=== PATIENT | female | born 1935 | race Caucasian/White ===

== ENCOUNTER 2018-09-06 19:39 | Emergency (ER) | payer OTHER ==
--- OUTSIDE RECORDS SUMMARY | 2018-09-06 19:42 | XMS REPORT | Clinical Summary ---
:[address] [facility] Address [address] [place] [address] Care Team Providers Name Role Phone Charlene Colon MD Primary Care Provider Allergies No Known Allergies Medications Medication Sig Dispensed Refills Start Date End Date Status rivaroxaban Take 20 mg by 0 Active (XARELTO) 20 mg mouth daily. tablet irbesartan-hydroch Take 1 tablet 0 Active lorothiazide by mouth (AVALIDE) 300-12.5 daily. mg per tablet amLODIPine Take 5 mg by 0 Active (NORVASC) 5 mg mouth daily. tablet omega Take 1 tablet 0 Active 2-fik-air-fish oil by mouth (FISH OIL) 1,000 daily. mg (120 mg-180 mg) capsule multivitamin Take 1 tablet 0 Active (THERAGRAN) tablet by mouth daily. pravastatin Take 80 mg by 0 Active (PRAVACHOL) 80 MG mouth nightly. tablet sotalol (BETAPACE) Take 120 mg by 0 11/04/2017 Discontinued 120 MG tablet mouth 2 (two) times a day. pravastatin Take 80 mg by 0 11/01/2017 Discontinued (PRAVACHOL) 40 MG mouth daily. tablet traMADol (ULTRAM) Take 0.5 25 tablet 0 11/04/2017 11/09/2017 50 mg tablet tablets (25 mg total) by mouth every 6 (six) hours as needed for moderate pain for up to 5 days. sotalol (BETAPACE) Take 1 tablet 60 tablet 1 11/04/2017 01/22/2018 Discontinued 160 MG tablet (160 mg total) by mouth 2 (two) times a day. minocycline Take 1 capsule 6 capsule 0 11/04/2017 11/07/2017 (MINOCIN) 100 MG (100 mg total) capsule by mouth 2 (two) times a day for 3 days. sucralfate Take 1 tablet 120 tablet 0 01/22/2018 02/21/2018 (CARAFATE) 1 gram (1 g total) by tablet mouth 4 (four) times a day before meals and nightly for 30 days. sotalol (BETAPACE) Take 1 tablet 60 tablet 0 01/22/2018 02/21/2018 80 MG tablet (80 mg total) by mouth 2 (two) times a day for 30 days. colchicine 0.6 mg Take 0.5 30 tablet 0 01/22/2018 02/21/2018 tablet tablets (0.3 mg total) by mouth 2 (two) times a day for 30 days. pantoprazole Take 1 tablet 60 tablet 0 01/22/2018 02/21/2018 (PROTONIX) 40 MG (40 mg total) EC tablet by mouth 2 (two) times a day for 30 days. Active Problems Problem Noted Date Persistent atrial fibrillation 01/21/2018 SSS (sick sinus syndrome) 11/03/2017 Encounters Date Type Specialty Care Team Description 01/21/2018 Anesthesia Event Procedural Goins, Cardiology Deisi Garcia MD 01/21/2018 Surgery Procedural Alfred Posey MD Ep complete ep study Cardiology w ablation pulmonary vein [88777 (CPT)] 01/21/2018 - Hospital Encounter Cardiology Alfred Posey MD Persistent atrial 01/22/2018 fibrillation 11/03/2017 Surgery Procedural Charlene Colon Ep ppi generator Gonzalo Monte MD insertion dual [58055 (CPT)] 11/03/2017 - Hospital Encounter Cardiology Charlene Colon SSS (sick sinus 11/04/2017 MD Mell syndrome) 09/08/2017 Surgery Procedural Charlene Colon Ep loop recorder Gonzalo Monte MD insertion [41708 (CPT)] 09/08/2017 Hospital Encounter Procedural Charlene Colon Atrial fibrillation, Gonzalo Monte MD unspecified type after 09/05/2017 Immunizations Name Dates Previously Given Next Due FLUCELVAX QUAD PF (0.5mL syringe) 01/22/2018 Family History Medical History Relation Name Comments Cancer Father No Known Problems Mother Relation Name Status Comments Father Mother Social History Tobacco Use Types Packs/Day Years Used Date Never Smoker Smokeless Tobacco: Never Used Alcohol Use Drinks/Week oz/Week Comments No Sex Assigned at Date Recorded Not on file Job Start Date Occupation Industry Not on file Not on file Not on file Travel History Travel Start Travel End No recent travel history available. Last Filed Vital Signs Vital Sign Reading Time Taken Blood Pressure 105/51 01/22/2018 11:27 AM CDT Pulse 63 01/22/2018 11:27 AM CDT Temperature 36.6 C (97.8 F) 01/22/2018 11:27 AM CDT Respiratory Rate 16 01/22/2018 11:27 AM CDT Oxygen Saturation 95% 01/22/2018 11:27 AM CDT Inhaled Oxygen Concentration - - Weight 68.7 kg (151 lb 6.4 oz) 01/21/2018 10:12 AM CDT Height 158.8 cm (5' 2.5") 01/21/2018 10:12 AM CDT Body Mass Index 27.25 01/21/2018 10:12 AM CDT Plan of Treatment Health Maintenance Due Date Last Done Comments SHINGLES VACCINES (#1) 08/04/1985 65+ PNEUMOCOCCAL VACCINE (1 of 2 - PCV13) 08/04/2000 PNEUMOCOCCAL POLYSACCHARIDE VACCINE AGE 65 AND OVER 08/04/2000 INFLUENZA VACCINE 12/08/2018 01/22/2018 Implants Implanted Type Area Health Occupations Instructor Device Shelf Model / Identifier Expiration Serial / Date Lot [place] Xt Dr Mri - [id number] Cardiac N/A: [employer] CRM [id number] / Implanted: 11/03/2017 (Quantity not on file) Pacemaker N/A [employer] / Generators System Reveal Linq W/Monitors - [id number] Cardiac N/A: [employer] 2018 [id number] / Implanted: 09/08/2017 (Quantity not on file) Pacemakers and N/A CARDIAC RHYTHM / Related DISEASE MGMT [id number] Products Lead, Pacemaker Bipolar Fix Forming Atrial And Ventricular Steroid Eluting 52 Centimeter Capsure Fix Novus - [id number] Cardiac Pacing N/A: [employer] CRM 08/20/2019 [id number] / Implanted: 11/03/2017 (Quantity not on file) Leads or N/A [employer]. [id number] / Electrodes or [id number] Accessories Lead, Bipolar Active Fixation Atrial Steroid Eluting 45 Cm Capsure Fix Novus System - [id number] Cardiac Pacing N/A: [employer] CRM 09/08/2019 [id number] / Implanted: 11/03/2017 (Quantity not on file) Leads or N/A [employer], [employer]. [id number] / Electrodes or [id number] Accessories Procedures Procedure Name Priority Date/Time Associated Diagnosis Comments XR CHEST 1 VW Routine 01/22/2018 6:52 Results for this PORTABLE AM CDT procedure are in the results section. HC COMPLETE BLD COUNT Routine 01/22/2018 6:00 Results for this W/AUTO DIFF AM CDT procedure are in the results section. ESTIMATED GFR Routine 01/22/2018 4:00 Results for this AM CDT procedure are in the results section. BASIC METABOLIC PANEL Routine 01/22/2018 4:00 Results for this AM CDT procedure are in the results section. EP COMPLETE EP STUDY Routine 01/21/2018 4:30 Persistent atrial Results for this W ABLATION PULMONARY PM CDT fibrillation procedure are in VEIN the results section. ACTIVATED CLOTTING Routine 01/21/2018 4:14 Results for this TIME PM CDT procedure are in the results section. ACTIVATED CLOTTING Routine 01/21/2018 3:01 Results for this TIME PM CDT procedure are in the results section. ACTIVATED CLOTTING Routine 01/21/2018 2:21 Results for this TIME PM CDT procedure are in the results section. NM AN ELECTIVE Routine 01/21/2018 1:26 ENDOTRACHEAL AIRWAY PM CDT Procedure Note - Deisi Goins MD - 01/21/2018 1:26 PM CDT Airway Performed by: HOLGER TRIVEDI Authorized by: DEISI GOINS Location: OR Urgency: Elective Difficult Airway: No Anesthesiologist: DEISI GOINS Resident/WASH OIL COOLER OPERATOR/AA: HOLGER TRIVEDI Performed by: resident/WASH OIL COOLER OPERATOR Preoxygenated with 100% O2: Yes C-spine Precautions Maintained Throughout: Yes Mask Ventilation: Easy mask Final Airway Type: Endotracheal airway Final Endotracheal Airway: ETT Cuffed: Yes Technique Used: Direct laryngoscopy Insertion Site: Oral Blade Type: Coker Laryngoscope Blade/Videolaryngoscope Blade Size: 2 ETT Size (mm): 7.0 Cuff at minimum occlusion pressure: Yes Measured from: Lips ETT to Lips (cm): 21 Placement Verified by: CO2 detection, direct visualization and equal breath sounds Laryngoscopic view: Grade I - full view of glottis Rapid Sequence Induction (RSI): No Modified RSI: No Number of Attempts at Approach: 1 Atraumatic; no injury to lips, teeth, or oropharynx. TYPE AND SCREEN STAT 01/21/2018 10:45 AM Results for this CDT procedure are in the results section. ECG PRE/POST OP Routine 01/21/2018 10:23 AM Results for this CDT procedure are in the results section. ZZESTIMATED GFR Routine 11/04/2017 5:45 AM Results for this CDT procedure are in the results section. MAGNESIUM LEVEL Routine 11/04/2017 5:45 AM Results for this CDT procedure are in the results section. BASIC METABOLIC PANEL Routine 11/04/2017 5:45 AM Results for this CDT procedure are in the results section. ECG 12-LEAD Routine 11/04/2017 3:17 AM Results for this CDT procedure are in the results section. ZZESTIMATED GFR Routine 11/03/2017 10:10 PM Results for this CDT procedure are in the results section. MAGNESIUM LEVEL Routine 11/03/2017 10:10 PM Results for this CDT procedure are in the results section. BASIC METABOLIC PANEL Routine 11/03/2017 10:10 PM Results for this CDT procedure are in the results section. XR CHEST 1 VW Routine 11/03/2017 9:56 PM Results for this PORTABLE CDT procedure are in the results section. ECG PRE/POST OP STAT 11/03/2017 6:45 PM Results for this CDT procedure are in the results section. EP SUBCUTANEOUS Routine 11/03/2017 5:46 PM SSS (sick sinus Results for this CARDIAC RHYTHM CDT syndrome) procedure are in MONITOR REMOVAL the results section. EP INSERTION Routine 11/03/2017 5:46 PM SSS (sick sinus Results for this PACEMAKER PULSE CDT syndrome) procedure are in GENERATOR the results section. ECG 12-LEAD STAT 11/03/2017 1:34 PM Results for this CDT procedure are in the results section. ECG 12-LEAD Routine 09/08/2017 9:06 AM Results for this CDT procedure are in the results section. EP SUBCUTANEOUS Routine 09/08/2017 7:54 AM Atrial fibrillation, Results for this CARDAIC RHYTHM CDT unspecified type procedure are in MONITOR INSERT W PROG the results section. after 09/05/2017 Results XR Chest 1 Vw Portable (01/22/2018 6:52 AM CDT)Only the most recent of2 resultswithin the time period is included. Narrative Performed At EXAMINATION:XR CHEST 1 VW PORTABLE [facility] CLINICAL HISTORY: Post A. fib ablation COMPARISON:11/03/2017 IMPRESSION: Left subclavian pacer device remains in place. There is mild cardiomegaly. Pulmonary vasculature is normal. Lungs are clear. No effusion or pneumothorax noted. Visualized osseous structures are intact. [facility]-[id number] Procedure Note Hm Interface, Radiology Results Incoming - 01/22/2018 8:55 AM CDT EXAMINATION: XR CHEST 1 VW PORTABLE CLINICAL HISTORY: Post A. fib ablation COMPARISON: 11/03/2017 IMPRESSION: Left subclavian pacer device remains in place. There is mild cardiomegaly. Pulmonary vasculature is normal. Lungs are clear. No effusion or pneumothorax noted. Visualized osseous structures are intact. [facility]-[id number] Performing Organization Address City/State/Zipcode Phone Number [facility] [address] [place] [address] CBC with platelet and differential (01/22/2018 6:00 AM CDT) WBC 8.41 4.50 - 11.00 k/uL [facility] DEPARTMENT OF PATHOLOGY AND GENOMIC MEDICINE RBC 3.71 (L) 4.20 - 5.50 m/uL [facility] DEPARTMENT OF PATHOLOGY AND GENOMIC MEDICINE HGB 12.1 12.0 - 16.0 g/dL [facility] DEPARTMENT OF PATHOLOGY AND GENOMIC MEDICINE HCT 36.1 (L) 37.0 - 47.0 % [facility] DEPARTMENT OF PATHOLOGY AND GENOMIC MEDICINE MCV 97.3 82.0 - 100.0 fL [facility] DEPARTMENT OF PATHOLOGY AND GENOMIC MEDICINE MCH 32.6 27.0 - 34.0 pg [facility] DEPARTMENT OF PATHOLOGY AND GENOMIC MEDICINE MCHC 33.5 31.0 - 37.0 g/dL [facility] DEPARTMENT OF PATHOLOGY AND GENOMIC MEDICINE RDW - SD 44.3 37.0 - 55.0 fL [facility] DEPARTMENT OF PATHOLOGY AND GENOMIC MEDICINE MPV 10.6 8.8 - 13.2 fL [facility] DEPARTMENT OF PATHOLOGY AND GENOMIC MEDICINE Platelet count 219 150 - 400 k/uL [facility] DEPARTMENT OF PATHOLOGY AND GENOMIC MEDICINE Nucleated RBC 0.00 /100 WBC [facility] DEPARTMENT OF PATHOLOGY AND GENOMIC MEDICINE Neutrophils 65.0 39.0 - 69.0 % [facility] DEPARTMENT OF PATHOLOGY AND GENOMIC MEDICINE Lymphocytes 21.8 (L) 25.0 - 45.0 % [facility] DEPARTMENT OF PATHOLOGY AND GENOMIC MEDICINE Monocytes 11.2 (H) 0.0 - 10.0 % [facility] DEPARTMENT OF PATHOLOGY AND GENOMIC MEDICINE Eosinophils 1.0 0.0 - 5.0 % [facility] DEPARTMENT OF PATHOLOGY AND GENOMIC MEDICINE Basophils 0.6 0.0 - 1.0 % [facility] DEPARTMENT OF PATHOLOGY AND GENOMIC MEDICINE Immature granulocytes 0.4Comment: 0.0 - 1.0 % [facility] DEPARTMENT OF "Immature PATHOLOGY AND GENOMIC granulocytes" MEDICINE (promyelocytes, myelocytes, metamyelocytes) Specimen Blood Performing Organization Address City/[facility] Phone Number [facility] DEPARTMENT OF PATHOLOGY AND [address] [place], [place] [id number] [employer] [facility] Estimated GFR (01/22/2018 4:00 AM CDT) Estimated GFR 74 mL/min/1.73 m2 [facility] DEPARTMENT OF Comment: PATHOLOGY AND GENOMIC CatergoryUnitsInterpretation MEDICINE G1 >=90 Normal or high G2 60-89Mildly decreased [id number] to moderately decreased Z5p33-89Iusfulgtex to severely decreased G4 15-29Severely decreased G5 <15Kidney failure The eGFR was calculated using the Chronic Kidney Disease Epidemiology Collaboration (CKD-EPI) equation. Interpretation is based on recommendations of the National Kidney Foundation-Kidney Disease Outcomes Quality Initiative (NKF-KDOQI) published in 2014. Specimen Plasma specimen Performing Organization Address City/[facility] Phone Number [facility] DEPARTMENT OF PATHOLOGY AND [address] [place] [phone] [employer] Basic metabolic panel (01/22/2018 4:00 AM CDT)Only the most recent of3 resultswithin the time period is included. Sodium 140 135 - 148 mEq/L [facility] DEPARTMENT OF PATHOLOGY AND GENOMIC MEDICINE Potassium 4.0 3.5 - 5.0 mEq/L [facility] DEPARTMENT OF PATHOLOGY AND GENOMIC MEDICINE Chloride 103 98 - 112 mEq/L [facility] DEPARTMENT OF PATHOLOGY AND GENOMIC MEDICINE CO2 27 24 - 31 mEq/L [facility] DEPARTMENT OF PATHOLOGY AND GENOMIC MEDICINE Anion gap 10@ANIO 7 - 15 mEq/L [facility] DEPARTMENT OF PATHOLOGY AND GENOMIC MEDICINE BUN 14 8 - 23 mg/dL [facility] DEPARTMENT OF PATHOLOGY AND GENOMIC MEDICINE Creatinine 0.75 0.50 - 0.90 mg/dL [facility] DEPARTMENT OF PATHOLOGY AND GENOMIC MEDICINE Glucose 96 65 - 99 mg/dL [facility] DEPARTMENT OF PATHOLOGY AND GENOMIC MEDICINE Calcium 8.8 8.8 - 10.2 mg/dL [facility] DEPARTMENT OF PATHOLOGY AND GENOMIC MEDICINE Specimen Plasma specimen Performing Organization Address City/State/Zipcode Phone Number [facility] DEPARTMENT OF PATHOLOGY AND [address] [place] [address] [employer] [facility]ICINE Cv electrophysiology procedure (01/21/2018 4:30 PM CDT) Impressions Performed At -Successful pulmonary veins isolation x4 CUPID -No clear afib trigger identified. RECOMMENDATIONS: 1- Monitor on telemetry overnight 2- Bedrest for 4 hours after sheaths removal 3- Restart Xarelto tonight 4- Decrease sotalol to 80mg BID 5- Lasix 20 mg IV when patient in recovery Narrative Performed At DATE OF OPERATION: 01/21/2018 [facility] CALENDER ROLL OPERATOR: Alfred Posey MD PREOPERATIVE DIAGNOSES: -Persistent atrial fibrillation -Sick sinus syndrome s/p pacemaker -Resistant hypertension POSTOPERATIVE DIAGNOSES: -Persistent atrial fibrillation -Sick sinus syndrome s/p pacemaker -Resistant hypertension PROCEDURES PERFORMED: -Ultrasound guided vascular access -Arterial line placement -Afib ablation with PVI -3D mapping -Stimulation after drug infusion -Intra cardiac echocardiography (ICE) -Device programming at the beginning and the end of the procedure COMPLICATIONS: None ESTIMATED BLOOD LOSS: <30cc HISTORY OF PRESENT ILLNESS: In brief, this is an 82 years old female with past medical history as above, with symptomatic atrial fibrillation refractory to high dose anti-arrhythmics (currently on high dose sotalol 160mg BID) who presents today for atrial fibrillation ablation. PROCEDURE IN DETAIL: Consent was obtained from the patient after a full explanation of the risks and benefits of the procedure. The patient was brought to the electrophysiology lab in the fasting state. The patient was prepared and draped in a sterile fashion. General anesthesia with intratracheal ventilation administered by the anesthesia service was used for the procedure. Esophageal temperature monitoring was performed throughout the case using CIRCA catheter. Patient presented to the EP lab in normal sinus rhythm. Sheaths were placed using modified Seldinger technique. Three venous sheaths (8Fr, long 7Fr and long 9Fr sheath) were placed in the right femoral vein using ultrasound guidance without complication. One 4Fr arterial sheath was placed in the right femoral artery using ultrasound guidance without complication. Heparin bolus and gtt were given after obtaining vascular access. A intracardiac echocardiography catheter (ICE) was inserted via the 9Fr sheath and advanced into the right atrium and the right ventricle.At baseline, there was no pericardial effusion and normal EF. Using SOUND, the CTI, CS os, fossa,common os LPV, RPVs were marked. The left atrium was noted to be mildly enlarged and measured at 4.6cm. The ICE catheter was later used to guide transseptal puncture and monitor for procedure complications. Next, the RFV 8Fr sheath was upgraded to a medium curl Agilis sheath, through which a Fiix SF catheter, DF curve was advanced to the RA, and a Fast Anatomic Map (FAM) was done for the IVC, RA septum, fossa and SVC. A decapolar diagnostic catheter was then advanced into the coronary sinus.After titrating heparin drip to achieve an ACT > 350 sec, transseptal puncture was performed with [place] long needle (not requiring RF) using ICE guidance. Left (18 mmHg) atrial pressure was measured to assess intracardiac filling pressures.There were no complications. Following transseptal puncture, Agilis sheath was advanced into the LA, and the ablator was then exchanged to a DF Pentarray catheter. A detailed 3D electroanatomical and voltage map was created while in sinus rhythm in the left atrium using CARTO mapping system. Mostly normal voltage was seen throughout. After exchanging the Pentarray to the ablation catheter, we proceeded to pulmonary veins isolation. The left pulmonary vein (common os) was circumferentially isolated as a common os using RF ablation.Left veins were isolated from the first pass. Ablation line was extended posterior enough to isolate areas of low voltage on the posterior roof. The right pulmonary veins were circumferentially isolated as a common os using RF ablation. Additional lesions were needed on the posterior inferior wall to achieve isolation. Prior to ablation of right sided veins, pacing was performed and right phrenic nerve course was avoided (PN captured from RPVs and course was avoided during lesions;'capture was confirmed again at the end after ablation was complete).30-40 W for 30 sec and impedance drop of 10-15 ohms was targeted in the anterior sites. Posterior sites used 20 W for 8-15 sec. Occasionally, high power short duration lesions (40-50W for 4-5 seconds) were used, with no significant change in esophageal temperature. Following this, the LPV was found to be reconnected and ablation at the posterior monica reisolated the veins. Isuprel infusion up to 20mcg/min did demonstrate reconnection of the RPVs. Additional lesions were needed along the posterior monica and carinal line transecting the upper and lower vein was eventually needed to isolate successfully the RPVs. The LPV was confirmed to be isolated with high output pacing exit.CS burst pacing from 250ms to 180msec during isuprel washout, no afib or organized AT/flutter was induced. Only non sustained flutter and afib was seen. Heparin was stopped and catheters were withdrawn into the RA. At this time case was ended. HV interval was measured at 118msec and AH=47ms. Post-procedure ICE showed no pericardial effusion.At this time, GA was stopped and patient was extubated; No immediate complications. Protamine was given at the end of the procedure.Sheaths were pulled in the lab and patient was transferred to the PACU in a stable condition. Of note, patient was noted to have significant hypertension during the procedure and significant LVH on ICE. Performing Organization Address [facility] Phone Number [facility] [address] [place] [address] Activated clotting time (01/21/2018 4:14 PM CDT)Only the most recent of3 resultswithin the time period is included. Activated clotting time 111 96 - 152 sec [facility] DEPARTMENT OF Comment: PATHOLOGY AND GENOMIC Meter ID: [id number] MEDICINE Casting Machine Service Operator: Jean Paul Abebe Performing Organization Address [facility] Phone Number [facility] DEPARTMENT OF PATHOLOGY AND [address] [place] [id number] GENOMIC MEDICINE Type and screen (01/21/2018 10:45 AM CDT) ABO grouping A [facility] DEPARTMENT OF PATHOLOGY AND GENOMIC MEDICINE Rh type POS [facility] DEPARTMENT OF PATHOLOGY AND GENOMIC MEDICINE Antibody screen (gel) NEG [facility] DEPARTMENT OF PATHOLOGY AND GENOMIC MEDICINE Specimen Blood Performing Organization Address [facility] Phone Number [facility] DEPARTMENT OF PATHOLOGY AND [address] [place] [phone] GENOMIC MEDICINE ECG Pre/Post Op (01/21/2018 10:23 AM CDT)Only the most recent of2 resultswithin the time period is included. Ventricular rate 61 [facility]USE Atrial rate 61 [facility] NM interval 182 [facility] QRSD interval 82 [facility] QT interval 406 [facility] QTC interval 408 H MUSE P axis 1 31 [facility] MUSE QRS axis 1 -22 [facility] MUSE T wave axis 45 [facility] MUSE EKG impression Normal sinus rhythm-Low voltage QRS-RSR' or QR pattern in V1 suggests right ventricular conduction delay-Cannot rule out Inferior infarct , age undetermined-Abnormal ECG-In automated comparison with ECG [facility] MUSE of 04-NOV-2017 03:17,-Sinus rhythm has replaced Atrial fibrillation-RSR' pattern in V1 is now present- Performing Organization Address City/[facility] Phone Number [facility] [place] [place] [address] [place] [address] Estimated GFR (11/04/2017 5:45 AM CDT)Only the most recent of2 resultswithin the time period is included. GFR Non Af Amer 80 mL/min/1.73 m2 [facility] DEPARTMENT OF PATHOLOGY AND GENOMIC MEDICINE GFR Af Amer >90 mL/min/1.73 m2 [facility] DEPARTMENT OF Comment: PATHOLOGY AND GENOMIC Chronic kidney disease: <60 mL/min/1.73m2 MEDICINE Kidney failure: <15 mL/min/1.73m2 The estimated GFR is calculated from the IDMS-traceable Modification of Diet in Renal Disease Equation. The accuracy of the calculation is poor when the creatinine is normal. Calculated values >90 mL/min/1.73m2 are not reported. This equation has not been validated in children (<18 years), women, the elderly (>70 years), or ethnic groups other than Caucasians and Americans. Specimen Plasma specimen Performing Organization Address City/[facility]/Zipcode Phone Number [facility] DEPARTMENT OF PATHOLOGY AND [address] [place] [address] [facility] Magnesium level (11/04/2017 5:45 AM CDT)Only the most recent of2 resultswithin the time period is included. Magnesium 2.0 1.6 - 2.4 mg/dL [facility] DEPARTMENT OF PATHOLOGY AND GENOMIC MEDICINE Specimen Plasma specimen Performing Organization Address City/[facility] Phone Number [facility] DEPARTMENT OF PATHOLOGY AND [address] [place] [phone] GENOMIC MEDICINE ECG 12 lead (11/04/2017 3:17 AM CDT)Only the most recent of3 resultswithin the time period is included. Ventricular rate 66 [facility] MUSE Atrial rate 312 [facility] MUSE QRSD interval 74 [facility] MUSE QT interval 412 [facility] MUSE QTC interval 431 [facility] MUSE QRS axis 1 86 [facility] MUSE T wave axis 80 [facility] MUSE EKG impression Demand pacemaker, interpretation is based on intrinsic rhythm- Atrial fibrillation with premature ventricular or aberrantly conducted complexes -Low voltage QRS-Abnormal ECG-In automated comparison with E [facility] MUSE CG of 03-NOV-2017 18:45,-Electronic demand pacing is now present-Electronically Signed By Darci Shabazz ([id number]) on 2017 11:36:08 AM Performing Organization Address [facility] Phone Number [facility] [place] [place] [address] [place] [address] Cv electrophysiology procedure (11/03/2017 5:46 PM CDT) Narrative Performed At TITLE OF THE PROCEDURE: [facility] CUP[facility] Dual-chamber pacemaker insertion and implantable loop recorder explant. PREOPERATIVE DIAGNOSES: 1.Sick sinus syndrome. 2.Tachycardia-bradycardia syndrome. 3.Conversion pauses and sinus node arrest with dizziness. POSTOPERATIVE DIAGNOSES: 1.Sick sinus syndrome. 2.Tachycardia-bradycardia syndrome. 3.Conversion pauses and sinus node arrest with dizziness. PROCEDURES PERFORMED: 1.Cardiac fluoroscopy. 2.IV conscious sedation. 3.Insertion of dual-chamber pacemaker. 4.Removal of implantable loop recorder. BRIEF HISTORY OF PRESENT ILLNESS AND CLINICAL BACKGROUND: This is an 82-year-old woman with paroxysmal atrial fibrillation.She has LINQ monitor, which has documented pauses in excess of 3-4 seconds at the terminus of atrial fibrillation as well as during sinus rhythm.She is on sotalol 120 mg b.i.d., but continues to have intermittent atrial fibrillation. Consequently, because she has post-conversion pauses as well as sinus node dysfunction and requires uptitration of her medications or in the future additional medications or consideration of an ablation.She remains at risk for important sinus node dysfunction with potentially grossly symptomatic pauses and she comes for pacemaker insertion and subsequent ILR explant. PROCEDURE: Informed consent was obtained.Intravenous antibiotics were infused appropriately.The chest was prepped and draped in the usual sterile fashion and local anesthesia was achieved with 1% lidocaine.An upper extremity venogram was performed to identify the location of the axillary and subclavian vein and access was achieved.Guide wires were introduced under fluoroscopic guidance and advanced into the inferior vena cava. Using a sharp knife, cautery, and blunt dissection, a pocket was formed below the plane of the pectoralis fascia.The RV and atrial leads were placed into the venous system using standard technique.The RV pace/sense lead was placed into the RV apex and tested.After the thresholds were deemed adequate the lead was anchored in place.Maximum output pacing was performed to ensure that there was no diaphragmatic stimulation, and none was seen.The lead was anchored in place using 0-Ethibond sutures around the lead collar. A bipolar screw-in lead was affixed into the right atrium.Sensing and pacing thresholds were then performed.After they were found to be adequate, maximum output pacing was performed to ensure that there was no diaphragmatic stimulation, and none was seen.The lead was anchored in place using 0-Ethibond sutures around the lead collar. Fluoroscopy was repeated to ensure proper lead placement.The pacemaker pocket was visually, manually, and radiographically inspected to ensure there were no gauze or sponges in the pocket.It was then washed using antibiotic solution. Gloves and drapes were changed as needed.The pacemaker generator packet was then opened and was attached to the leads and the set screws were tightened. Each lead was gently tugged upon to ensure it was affixed within the header. After proper pacemaker function was confirmed, the lead slack and pacemaker were placed in the pocket.The pacemaker was anchored to the pectoralis muscle using 0-Ethibond suture.The skin incision was then closed in layers using 0-Vicryl sutures.Final skin closure was achieved with stainless steel oren and skin adhesive. COMPLICATIONS: None. FINDINGS: 1.The right ventricular apical pacing lead is Medtronic 5076, serial #[id number], pacing and sensing thresholds were nominal. 2.The atrial lead is a Medtronic 5076, serial #[id number], pacing and sensing thresholds were nominal. 3.The pacemaker is a Medtronic [place]-XT, serial number not available. 4.Utilizing a stab incision, the ILR was explanted. CONCLUSIONS: Successful dual-chamber pacemaker and ILR explant RECOMMENDATIONS: IV antibiotics and home in the morning. Performing Organization Address [facility] Phone Number [facility] [address] [place] [address] Cv electrophysiology procedure (09/08/2017 7:54 AM CDT) Narrative Performed At Charlene Colon Jr., MD Physician Signed CardiologyBrief Op Note Date of CUPID Service: 09/08/2017 7:15 AM Case Time: 09/08/2017 7:15 AM Surgeon: Charlene Colon Jr., MD Procedure: Ep loop recorder insertion Location: [facility] Personal Property Appraiser Invasive Location []Hide copied text []Hover for attribution information ILR implant Operative Note Marcy Callahan,[id number] 82 y.o. female 09/08/2017; [facility] CARD JONATHON 8 PROCEDURE ROOM 14 Procedure(s): Ep loop recorder insertion Tolerated procedure well Condition: stable Complications:None; patient tolerated the procedure well. Findings: The Implantable loop recorder was inserted under the skin in the 4th intercostal space just to the left of the sternum.Local anesthesia was used. Blood loss was zero. Procedure Details Pre-op Diagnosis: Atrial fibrillation, unspecified type [I48.91] Post-Op Diagnosis Codes: * Atrial fibrillation, unspecified type [I48.91] Surgeon(s) and Role: * Charlene Colon Jr., MD - Primary Anesthesia: Anesthesia type not filed in the log. Blood Products Administered:none Estimated Blood Loss: * No values recorded between 09/08/20177:15 AM and 09/08/20177:54 AM * Sheath/IV: Specimens: * No specimens in log * Grafts/Implants: Implant Name Type Inv. Item Serial No. Health Occupations Instructor Lot No. LRB No. Used Action SYSTEM REVEAL LINQ W/MONITORS - [id number] Cardiac Pacemakers and Related Products SYSTEM REVEAL LINQ W/MONITORS MEDTRONIC CARDIAC RHYTHM DISEASE MGMT [id number] N/A 1 Implanted Charlene Colon Jr., MD Date: 09/08/2017Time: 8:20 AM Performing Organization Address City/[facility] Phone Number [facility] [address] [place] [address] after 09/05/2017 Insurance Payer Benefit Plan / Group Subscriber ID Type Phone Address AETNA MEDICARE AETNA MEDICARE HMO/PPO [facility] xxxxxxxx HMO ([place]) [place] [address] Advance Directives Patient has advance care planning documents on file. For more information, please contact:Aravind Cuellar[address] [place] [address]
[2018-09-06 21:05] LABS: Absolute Lymphocytes (CBC) 1.3 K/uL (0.7-4.9); Absolute Monocytes 0.6 K/uL (0.1-1.3); Absolute Neutrophil 7.4 K/uL (1.8-8.0); Basophils % 0.7 % (0-1.3); Eosinophils % 0.8 % (0-4.4); Hematocrit 39.3 % (36.0-45.0); Lymphocytes % 13.9 % (15.3-44.8); MPV 9.5 fL (7.6-11.3); Monocytes % 6.3 % (3.3-12.3); RBC Red Blood Cell Count 4.15 M/uL (3.86-4.86)
[2018-09-06 21:16] LABS: Protime INR 1.27
[2018-09-06 21:19] LABS: ALT/SGPT 22 U/L (12-78); AST/SGOT 16 U/L (15-37); Albumin 3.6 g/dL (3.4-5.0); Alkaline Phosphatase 69 U/L (45-117); BUN Blood Urea Nitrogen 25 mg/dL (7-18); Bicarbonate 28 mmol/L (21-32); Bilirubin Direct 0.1 mg/dL (0-0.2); Bilirubin Total 0.5 mg/dL (0.2-1.0); Glucose Level 139 mg/dL (74-106); Magnesium 2.2 mg/dL (1.8-2.4); NT PRO-BNP 190 pg/mL (<450); Potassium 3.8 mmol/L (3.5-5.1); Protein, Total 6.9 g/dL (6.4-8.2); Sodium Level 140 mmol/L (136-145); Troponin (Emerg Dept Use Only) < 0.02 ng/mL (0.0-0.045)
--- NOTE | 2018-09-06 21:54 | ER ---
Nurse's Notes [facility] Name: Marcy Callahan Age: 83 yrs Sex: Female : 1935 Arrival Date: 09/06/2018 Time: 19:49 Bed 2 Private MD: Diagnosis: Paroxysmal atrial fibrillation Presentation: 09/06 19:49 Presenting complaint: Patient states: she was running errands this morning and became aa1 very tired so she laid down for a nap and when she woke up she was very sweaty and felt like her pulse was very rapid. She went to see Dr. Chand and he told her that she was back in AF and started her on Sotalol which she took as soon as she got home but reports she still does not feel right and feels as if her heart is racing. Denies CP, N/V or SOB. Transition of care: patient was not received from another setting of care. Onset of symptoms was September 06, 2018. Risk Assessment: Do you want to hurt yourself or someone else? Patient reports no desire to harm self or others. Initial Sepsis Screen: Does the patient meet any 2 criteria? No. Patient's initial sepsis screen is negative. Does the patient have a suspected source of infection? No. Patient's initial sepsis screen is negative. Care prior to arrival: IV initiated. 20 GA, in the right antecubital area. 19:49 Method Of Arrival: EMS: [facility] aa1 19:49 Acuity: DORI 2 aa1 Historical: - Allergies: 20:00 No Known Allergies; aa1 - Home Meds: 20:00 sotalol 80 mg oral tab .5 tab 2 times per day [Active]; Xarelto 20 mg oral tab 1 tab aa1 once daily [Active]; irbesartan-hydrochlorothiazide 300-12.5 mg oral tab 1 tab once daily [Active]; amlodipine 5 mg tab 1 tab once daily [Active]; Pravachol 80 mg Oral tab 1 tab once daily [Active]; Fish Oil oral oral daily [Active]; multivitamin oral tab daily [Active]; - PMHx: 20:00 Hyperlipidemia; Hypertension; Atrial Fib; aa1 - PSHx: 20:00 cardiac ablation; pacemaker; aa1 - Immunization history:: Pneumococcal vaccine is up to date, Flu vaccine is up to date. - Social history:: Smoking status: Patient/guardian denies using tobacco. - Ebola Screening: : No symptoms or risks identified at this time. Screenin:01 Abuse screen: Denies threats or abuse. Denies injuries from another. Nutritional aa1 screening: No deficits noted. Tuberculosis screening: No symptoms or risk factors identified. Fall Risk IV access (20 points). Assessment: 20:01 General: Appears in no apparent distress. comfortable, Behavior is calm, cooperative, aa1 appropriate for age. Pain: Denies pain. Neuro: Level of Consciousness is awake, alert, obeys commands, Oriented to person, place, time, situation, Moves all extremities. Full function Speech is normal. Cardiovascular: Denies chest pain, nausea, shortness of breath, Heart tones S1 S2 present Capillary refill < 3 seconds Clubbing of nail beds is absent JVD is absent Patient's skin is warm and dry. Rhythm is atrial fibrillation. Respiratory: Airway is patent Respiratory effort is even, unlabored, Respiratory pattern is regular, symmetrical. GI: No signs and/or symptoms were reported involving the gastrointestinal system. : No signs and/or symptoms were reported regarding the genitourinary system. EENT: No signs and/or symptoms were reported regarding the EENT system. Derm: Skin is intact, is healthy with good turgor, Skin is pink, warm \T\ dry. Musculoskeletal: Circulation, motion, and sensation intact. Capillary refill < 3 seconds. 20:41 Reassessment: BP 102/71; per MD ok to hold lopressor IVP at this time. aa1 21:30 Reassessment: Patient appears in no apparent distress at this time. Patient and/or aa1 family updated on plan of care and expected duration. Pain level reassessed. Patient is alert, oriented x 3, equal unlabored respirations, skin warm/dry/pink. Awaiting provider reassessment. 22:11 Reassessment: Patient appears in no apparent distress at this time. Patient is alert, aa1 oriented x 3, equal unlabored respirations, skin warm/dry/pink. Discussed d/c \T\ f/u instructions with pt \T\ family; denies questions or concerns at this time. Ambulates to lobby with steady gait. Patient denies pain at this time. Patient states feeling better. Vital Signs: 20:00 BP 105 / 54; Pulse 107; Resp 20; Temp 98.2(O); Pulse Ox 97% on R/A; Weight 68.04 kg; aa1 Height 5 ft. 4 in. (162.56 cm); Pain 0/10; 20:36 BP 102 / 71; Pulse 99; Resp 16; Pulse Ox 98% on R/A; Pain 0/10; aa1 21:30 BP 107 / 70; Pulse 99; Resp 20; Temp 97.7; Pulse Ox 97% on R/A; Pain 0/10; aa1 22:11 BP 100 / 69; Pulse 91; Resp 16; Temp 97.5; Pulse Ox 97% on R/A; Pain 0/10; aa1 20:00 Body Mass Index 25.75 (68.04 kg, 162.56 cm) aa1 ED Course: 19:49 Patient arrived in ED. aa1 19:50 Bucky Dejesus MD is Attending Physician. tw4 19:53 Triage completed. aa1 20:00 Arm band placed on left wrist. aa1 20:01 Patient has correct armband on for positive identification. Placed in gown. Bed in low aa1 position. Call light in reach. Side rails up X2. copying machine repairer on. Pulse ox on. NIBP on. 20:01 EKG done, by ED staff, reviewed by Bucky Dejesus MD. Maintain EMS IV. Dressing aa1 intact. Good blood return noted. Site clean \T\ dry. Gauge \T\ site: 20g RAC. Patient maintains SpO2 saturation greater than 95% on room air. 20:36 Bridget Patel RN is Primary Nurse. aa1 20:51 Initial lab(s) drawn, by ED staff, sent to lab. bb 20:59 XRAY Chest (1 view) In Process Unspecified. EDMS 22:11 No provider procedures requiring assistance completed. IV discontinued, intact, aa1 bleeding controlled, No redness/swelling at site. Pressure dressing applied. Administered Medications: 21:36 Not Given (Physician Discretion): Lopressor 5 mg IVP once; Hold for SBP <100 or HR <60. aa1 Outcome: 21:54 Discharge ordered by . tw4 22:11 Discharged to home ambulatory, with family. aa1 22:11 Condition: good 22:11 Discharge instructions given to patient, Instructed on discharge instructions, follow up and referral plans. medication usage, Demonstrated understanding of instructions, follow-up care, medications. 22:13 Patient left the ED. aa1 Signatures: Dispatcher [employer] EDBridget Barraza RN RN aa1 Melanie Denise RN RN Bucky Canales MD MD tw4
--- NOTE | 2018-09-06 21:54 | EDPHYS ---
Physician Documentation [facility] Name: Marcy Callahan Age: 83 yrs Sex: Female : 1935 Arrival Date: 09/06/2018 Time: 19:49 Bed 2 Private MD: ED Physician Bucky Dejesus HPI: 09/07 04:28 This 83 yrs old Female presents to ER via EMS with complaints of Irregular tw4 Pulse. 04:28 The patient presents with a history of heart racing. Context: The symptoms occur at tw4 rest. Onset: The symptoms/episode began/occurred today. Duration: The patient or guardian reports a single episode, that is now resolved. Modifying factors: The symptoms are aggravated by nothing. The symptoms are alleviated by nothing. Severity of symptoms: At their worst the symptoms were mild in the emergency department the symptoms are unchanged. The patient has not experienced similar symptoms in the past. Historical: - Allergies: 09/06 20:00 No Known Allergies; aa1 - Home Meds: 20:00 sotalol 80 mg oral tab .5 tab 2 times per day [Active]; Xarelto 20 mg oral tab 1 tab aa1 once daily [Active]; irbesartan-hydrochlorothiazide 300-12.5 mg oral tab 1 tab once daily [Active]; amlodipine 5 mg tab 1 tab once daily [Active]; Pravachol 80 mg Oral tab 1 tab once daily [Active]; Fish Oil oral oral daily [Active]; multivitamin oral tab daily [Active]; - PMHx: 20:00 Hyperlipidemia; Hypertension; Atrial Fib; aa1 - PSHx: 20:00 cardiac ablation; pacemaker; aa1 - Immunization history:: Pneumococcal vaccine is up to date, Flu vaccine is up to date. - Social history:: Smoking status: Patient/guardian denies using tobacco. - Ebola Screening: : No symptoms or risks identified at this time. ROS: 09/07 04:28 Constitutional: Negative for fever, chills, and weight loss, Eyes: Negative for injury, tw4 pain, redness, and discharge, Respiratory: Negative for shortness of breath, cough, wheezing, and pleuritic chest pain. Abdomen/GI: Negative for abdominal pain, nausea, vomiting, diarrhea, and constipation, Back: Negative for injury and pain, MS/Extremity: Negative for injury and deformity, Skin: Negative for injury, rash, and discoloration, Neuro: Negative for headache, weakness, numbness, tingling, and seizure. Cardiovascular: Positive for palpitations. Exam: 04:28 Constitutional: This is a well developed, well nourished patient who is awake, alert, tw4 and in no acute distress. Head/Face: Normocephalic, atraumatic. Chest/axilla: Normal chest wall appearance and motion. Nontender with no deformity. No lesions are appreciated. Respiratory: Lungs have equal breath sounds bilaterally, clear to auscultation and percussion. No rales, rhonchi or wheezes noted. No increased work of breathing, no retractions or nasal flaring. Abdomen/GI: Soft, non-tender, with normal bowel sounds. No distension or tympany. No guarding or rebound. No evidence of tenderness throughout. Back: No spinal tenderness. No costovertebral tenderness. Full range of motion. MS/ Extremity: Pulses equal, no cyanosis. Neurovascular intact. Full, normal range of motion. Neuro: Awake and alert, GCS 15, oriented to person, place, time, and situation. Cranial nerves II-XII grossly intact. Motor strength 5/5 in all extremities. Sensory grossly intact. Cerebellar exam normal. Normal gait. 04:28 Cardiovascular: Rate: tachycardic, actual rate is 105 bpm, Rhythm: irregular, Pulses: Vital Signs: 09/06 20:00 BP 105 / 54; Pulse 107; Resp 20; Temp 98.2(O); Pulse Ox 97% on R/A; Weight 68.04 kg; aa1 Height 5 ft. 4 in. (162.56 cm); Pain 0/10; 20:36 BP 102 / 71; Pulse 99; Resp 16; Pulse Ox 98% on R/A; Pain 0/10; aa1 21:30 BP 107 / 70; Pulse 99; Resp 20; Temp 97.7; Pulse Ox 97% on R/A; Pain 0/10; aa1 22:11 BP 100 / 69; Pulse 91; Resp 16; Temp 97.5; Pulse Ox 97% on R/A; Pain 0/10; aa1 20:00 Body Mass Index 25.75 (68.04 kg, 162.56 cm) aa1 MDM: 19:50 Patient medically screened. tw09/07 04:32 Differential diagnosis: arrythmia, dehydration, stress disorder. Data reviewed: vital tw4 signs, nurses notes. Data interpreted: Pulse oximetry: Interpretation: normal. Test interpretation: by ED physician or midlevel provider: ECG. Counseling: I had a detailed discussion with the patient and/or guardian regarding: the historical points, exam findings, and any diagnostic results supporting the discharge/admit diagnosis, lab results, radiology results. Special discussion: I discussed with the patient/guardian in detail that at this point there is no indication for admission to the hospital. It is understood, however, that if the symptoms persist or worsen the patient needs to return immediately for re-evaluation. ED course: Pt rested comfortably in the ED. Pt had no additional complaints. Pt HR remained less than 100. Pt started Sotalol and will see Dr Chand Cardiology tomorrow. 09/06 20:41 Order name: Basic Metabolic Panel tw4 09/06 20:41 Order name: CBC with Diff 09/06 20:41 Order name: LFT's tw09/06 20:41 Order name: Magnesium tw4 09/06 20:41 Order name: NT PRO-BNP tw09/06 20:41 Order name: PT-INR 09/06 20:41 Order name: Troponin (emerg Dept Use Only) tw09/06 20:41 Order name: XRAY Chest (1 view) 09/06 20:41 Order name: EKG; Complete Time: 20:42 09/06 20:41 Order name: Cardiac monitoring; Complete Time: 20:41 09/06 20:41 Order name: EKG - Nurse/Tech; Complete Time: 20:41 09/06 20:41 Order name: IV Saline Lock; Complete Time: 20:41 tw09/06 20:41 Order name: Labs collected and sent; Complete Time: 20:41 09/06 20:41 Order name: O2 Per Protocol; Complete Time: 20:41 09/06 20:41 Order name: O2 Sat Monitoring; Complete Time: 20:42 tw4 EC:35 Rate is 109 beats/min. Rhythm is irregularly irregular. QRS [place] is Normal. QRS tw4 interval is normal. QT interval is normal. No Q waves. T waves are Normal. No ST changes noted. Clinical impression: Atrial Fibrillation. Interpreted by me. Reviewed by me. Administered Medications: 09/06 21:36 Not Given (Physician Discretion): Lopressor 5 mg IVP once; Hold for SBP <100 or HR <60. aa1 Disposition: 09/07 04:36 Chart complete. tw4 Disposition: 09/06/18 21:54 Discharged to Home. Impression: Paroxysmal atrial fibrillation. - Condition is Stable. - Discharge Instructions: Atrial Fibrillation. - Medication Reconciliation Form, Thank You Letter, Antibiotic Education, Prescription Opioid Use form. - Follow up: Private Physician; When: Upon discharge from the Emergency Department; Reason: If symptoms return, Recheck today's complaints, Continuance of care. - Problem is new. - Symptoms have improved. Signatures: Dispatcher [employer] Bridget Wang RN RN aa1 Bucky Dejesus MD MD tw4 Corrections: (The following items were deleted from the chart) 09/06 22:13 21:54 09/06/2018 21:54 Discharged to Home. Impression: Paroxysmal atrial fibrillation. aa1 Condition is Stable. Forms are Medication Reconciliation Form, Thank You Letter, Antibiotic Education, Prescription Opioid Use. Follow up: Private Physician; When: Upon discharge from the Emergency Department; Reason: If symptoms return, Recheck today's complaints, Continuance of care. Problem is new. Symptoms have improved. tw4
--- NOTE | 2018-09-07 07:31 | RAD REPORT ---
EXAM DESCRIPTION: RAD - Chest Single View - 09/06/2018 9:06 pm CLINICAL HISTORY: Chest pain, shortness of breath COMPARISON: None. TECHNIQUE: AP portable chest image was obtained 6 hours . FINDINGS: Lungs are clear. Heart size is upper normal. Vasculature within normal limits. Left subcla vian pacemaker in place. No measurable pleural effusion and no pneumothorax. No acute bony abnormalit y seen. No acute aortic findings suspected. IMPRESSION: No acute cardiopulmonary process.
--- NOTE | 2018-09-07 16:51 | EKG ---
Test Date: 2018-09-06 Test Time: 20:01:16 Vp Clinical: SANDRA MEASUREMENT RESULTS: Intervals: Rate: 109 [place]: QRSD: 76 QT: 332 QTc: 447 [place]: P: [place]: QRS: 4 T: 45 INTERPRETIVE STATEMENTS: Atrial fibrillation with rapid ventricular response Low voltage QRS RSR' or QR pattern in V1 suggests right ventricular conduction delay Abnormal ECG Compared to ECG 07/23/2017 06:51:28 Low QRS voltage now present Sinus bradycardia no longer present Myocardial infarct finding no longer present Electronically Signed On 09-07-18 16:50:11 CDT by Terry Chand
== END 2018-09-06 22:13 | disposition home or self-care (01) ==
LOC: ER 19:39
DX: I48.0 Paroxysmal atrial fibrillation (principal); I10 Essential (primary) hypertension; E78.5 Hyperlipidemia, unspecified; Z79.01 Long term (current) use of anticoagulants; Z95.0 Presence of cardiac pacemaker
CPT/HCPCS: 36415; 71045; 80048; 80076; 83735; 83880; 84484; 85025; 85610; 93005; 99285

== ENCOUNTER 2018-12-30 15:26 | Emergency (ER) | payer OTHER ==
[2018-12-30] MEDS ORDERED: NA CHLORIDE 0.9% 500 ML ONE (17:30)
[2018-12-30 18:06] LABS: Absolute Lymphocytes (CBC) 1.5 K/uL (0.7-4.9); Basophils % 0.3 % (0-1.3); Hematocrit 38.4 % (36.0-45.0); Lymphocytes % 14.3 % (15.3-44.8); MPV 8.8 fL (7.6-11.3); RBC Red Blood Cell Count 4.05 M/uL (3.86-4.86)
[2018-12-30 18:07] LABS: Albumin 3.7 g/dL (3.4-5.0); Bilirubin Total 0.8 mg/dL (0.2-1.0); Potassium 3.5 mmol/L (3.5-5.1); Protein, Total 7.3 g/dL (6.4-8.2)
--- NOTE | 2018-12-30 18:10 | RAD REPORT ---
EXAM DESCRIPTION: CT - [id number] - 12/30/2018 6:00 pm CLINICAL HISTORY: Neck pain, stiff neck, difficulty swallowing, headache COMPARISON: None. TECHNIQUE: Axial 5 mm thick images of the head were obtained. Axial 2 mm thick images of the cervic al spine were obtained with sagittal and coronal reconstruction images generated and reviewed. All CT scans are performed using dose optimization technique as appropriate and may include automated exposure control or mA/KV adjustment according to patient size. FINDINGS: No intracranial hemorrhage, mass, edema or acute intracranial finding. No acute cortical b ased infarction. No cortical edema or sulcal effacement. Mild for age atrophy and chronic ischemic ch adriel. Ventricles are in proportion. Mastoid air cells and paranasal sinuses are clear. No globe or or bit abnormality seen. Cervical body height and alignment are normal. Disc space narrowing is present at all levels except C 2-3. Disc space narrowing is most pronounced at C6-7 and posterior aspects C4-5. No fracture or acute bony abnormality. Central canal detail is inherently limited. No gross evidence for disc herniation. Mild foraminal encroachment changes are present at C4-5 and C5-6. More moderate foraminal encroachme nt at C6-7. Canal is borderline stenotic at C6-7. No paraspinal mass or hematoma. Epiglottis is normal. Right-sided pharyngeal soft tissues are somewha t asymmetric ; however, CT cervical spine protocol does not optimally imaged neck soft tissues. Right -sided dental spray artifact further limits right oropharyngeal and tonsillar assessment. IMPRESSION: Mild for age atrophy and chronic ischemic changes are present with no acute CT Head find ing. Cervical spine degenerative changes are present as detailed with no acute findings seen. No gross abnormality of the neck soft tissues ; however, CT cervical spine protocol does not optimall y imaged neck soft tissues.
--- NOTE | 2018-12-30 18:36 | ER ---
Nurse's Notes [facility] Name: Marcy Callahan Age: 83 yrs Sex: Female : 1935 Arrival Date: 12/30/2018 Time: 15:29 Bed 14 Private MD: Diagnosis: Strain of muscle, fascia and tendon at neck level;Torticollis;Atrial fibrillation and flutter Presentation: 12/30 15:40 Presenting complaint: Patient states: I woke up with a crick in my neck on Wednesday and la1 since then it has gotten much worse. A few days ago it started to take a lot of effort to swallow and also cause some pain. Transition of care: patient was not received from another setting of care. Onset of symptoms was December 30, 2018. Risk Assessment: Do you want to hurt yourself or someone else? Patient reports no desire to harm self or others. Initial Sepsis Screen: Does the patient meet any 2 criteria? No. Patient's initial sepsis screen is negative. Does the patient have a suspected source of infection? No. Patient's initial sepsis screen is negative. Care prior to arrival: None. 15:40 Method Of Arrival: Ambulatory la1 15:40 Acuity: DORI 3 la1 Historical: - Allergies: 15:42 No Known Allergies; la1 - Home Meds: 15:42 Xarelto 20 mg Oral tab 1 tab once daily [Active]; sotalol 80 mg Oral tab 0.5 tab 2 la1 times per day [Active]; Pravachol 80 mg Oral tab 1 tab once daily [Active]; multivitamin Oral tab daily [Active]; irbesartan-hydrochlorothiazide 300-12.5 mg Oral tab 1 tab once daily [Active]; amlodipine 5 mg tab 1 tab once daily [Active]; Fish Oil Oral daily [Active]; - PMHx: 15:42 Atrial Fib; Hyperlipidemia; Hypertension; la1 - Immunization history:: Adult Immunizations up to date. - Social history:: Smoking status: Patient/guardian denies using tobacco. - Ebola Screening: : No symptoms or risks identified at this time. - Family history:: not pertinent. Screenin:46 Abuse screen: Denies threats or abuse. Denies injuries from another. Nutritional jl7 screening: No deficits noted. Tuberculosis screening: No symptoms or risk factors identified. Fall Risk IV access (20 points). Total Shelby Fall Scale indicates No Risk (0-24 pts). Assessment: 17:35 General: Appears in no apparent distress. uncomfortable, Behavior is calm, cooperative, jl7 appropriate for age. Pain: Complains of pain in neck Pain currently is 8 out of 10 on a pain scale. Quality of pain is described as "Pain" Pain began 2-3 days ago. Is continuous. Neuro: Level of Consciousness is awake, alert, obeys commands, Oriented to person, place, time, situation. Cardiovascular: Patient's skin is warm and dry. Respiratory: Airway is patent Respiratory effort is even, unlabored, Respiratory pattern is regular, symmetrical. Derm: Skin is pink, warm \\T\\ dry. Musculoskeletal: Range of motion: limited in neck. 18:36 Reassessment: Patient appears in no apparent distress at this time. No changes from jl7 previously documented assessment. Patient and/or family updated on plan of care and expected duration. Pain level reassessed. Patient is alert, oriented x 3, equal unlabored respirations, skin warm/dry/pink. Vital Signs: 15:42 BP 121 / 61; Pulse 76; Resp 16; Temp 97.5; Pulse Ox 98% on R/A; Weight 67.13 kg; Height la1 5 ft. 4 in. (162.56 cm); 18:29 BP 154 / 59; Pulse 70; Resp 16; Pulse Ox 100% ; jl7 15:42 Body Mass Index 25.40 (67.13 kg, 162.56 cm) la1 ED Course: 15:29 Patient arrived in ED. mr 15:41 Triage completed. la1 15:42 Arm band placed on left wrist. la1 16:09 Gurmeet Ortega MD is Attending Physician. [facility] 16:15 Laureen Cano RN is Primary Nurse. jl7 17:44 Initial lab(s) drawn, by me, sent to lab. Inserted saline lock: 20 gauge in right jl7 antecubital area, using aseptic technique. Blood collected. 17:46 Patient has correct armband on for positive identification. Bed in low position. Call jl7 light in reach. Side rails up X 1. Pulse ox on. NIBP on. 18:02 CT Head C Spine In Process Unspecified. EDMS 18:28 Beto Rodriguez MD is Referral Physician. [facility] 18:50 No provider procedures requiring assistance completed. IV discontinued, intact, jl7 bleeding controlled, No redness/swelling at site. Pressure dressing applied. Administered Medications: 17:44 Drug: NS 0.9% 500 ml Route: IV; Rate: bolus; Site: right antecubital; jl7 18:15 Follow up: Response: No adverse reaction; IV Status: Completed infusion; IV Intake: jl7 500ml 18:00 CANCELLED (Duplicate Order): KeFLEX 500 mg PO once richard 18:40 Drug: Valium 5 mg Route: PO; jl7 18:40 Follow up: Response: Medication administered at discharge. jl7 18:40 Drug: Decadron - Dexamethasone 10 mg Route: IVP; Site: right antecubital; jl7 18:40 Follow up: Response: Medication administered at discharge. jl7 Intake: 18:15 IV: 500ml; Total: 500ml. jl7 Outcome: 18:31 Discharge ordered by . [facility] 18:50 Discharged to home ambulatory, with family. [facility] 18:50 Condition: stable 18:50 Discharge instructions given to patient, family, Instructed on discharge instructions, follow up and referral plans. medication usage, Demonstrated understanding of instructions, follow-up care, medications, Prescriptions given X 3. 19:12 Patient left the ED. jl7 Signatures: Dispatcher [employer] Gurmeet Wiggins MD MD cha Rivera, Mary mr Attema, Lee, RN RN Laureen Maza RN RN jl7
--- NOTE | 2018-12-30 18:37 | EDPHYS ---
Physician Documentation [facility] Name: Marcy Callahan Age: 83 yrs Sex: Female : 1935 Arrival Date: 12/30/2018 Time: 15:29 Bed 14 Private MD: ED Physician Gurmeet Ortega HPI: 12/30 17:13 This 83 yrs old Female presents to ER via Ambulatory with complaints of Stiff richard Neck, Difficulty Swallowing. 17:13 The patient or guardian complains of decreased range of motion, pain, that is acute. richard The symptoms are located at the C1, C2, C3, C4, C5, C6 and C7. Onset: The symptoms/episode began/occurred 5 day(s) ago. Context: The problem was sustained at an unknown location. Associated signs and symptoms: The patient has no apparent associated signs or symptoms. The pain does not radiate. Modifying factors: The symptoms are alleviated by nothing. Severity of symptoms: At their worst the symptoms were mild, moderate, in the emergency department the symptoms are unchanged. The patient has not experienced similar symptoms in the past. Historical: - Allergies: 15:42 No Known Allergies; la1 - Home Meds: 15:42 Xarelto 20 mg Oral tab 1 tab once daily [Active]; sotalol 80 mg Oral tab 0.5 tab 2 la1 times per day [Active]; Pravachol 80 mg Oral tab 1 tab once daily [Active]; multivitamin Oral tab daily [Active]; irbesartan-hydrochlorothiazide 300-12.5 mg Oral tab 1 tab once daily [Active]; amlodipine 5 mg tab 1 tab once daily [Active]; Fish Oil Oral daily [Active]; - PMHx: 15:42 Atrial Fib; Hyperlipidemia; Hypertension; la1 - Immunization history:: Adult Immunizations up to date. - Social history:: Smoking status: Patient/guardian denies using tobacco. - Ebola Screening: : No symptoms or risks identified at this time. - Family history:: not pertinent. ROS: 17:13 Constitutional: Negative for fever, chills, and weight loss, Eyes: Negative for injury, richard pain, redness, and discharge, ENT: Negative for injury, pain, and discharge, Cardiovascular: Negative for chest pain, palpitations, and edema, Respiratory: Negative for shortness of breath, cough, wheezing, and pleuritic chest pain, Abdomen/GI: Negative for abdominal pain, nausea, vomiting, diarrhea, and constipation, Back: Negative for injury and pain, : Negative for injury, bleeding, discharge, and swelling, MS/Extremity: Negative for injury and deformity, Skin: Negative for injury, rash, and discoloration, Neuro: Negative for headache, weakness, numbness, tingling, and seizure, Psych: Negative for depression, anxiety, suicide ideation, homicidal ideation, and hallucinations, Allergy/Immunology: Negative for hives, rash, and allergies, Endocrine: Negative for neck swelling, polydipsia, polyuria, polyphagia, and marked weight changes, Hematologic/Lymphatic: Negative for swollen nodes, abnormal bleeding, and unusual bruising. 17:13 Neck: Positive for pain with movement, pain at rest, swelling, pain with left and right rotation. Exam: 17:13 Constitutional: This is a well developed, well nourished patient who is awake, alert, richard and in no acute distress. Head/Face: Normocephalic, atraumatic. Eyes: Pupils equal round and reactive to light, extra-ocular motions intact. Lids and lashes normal. Conjunctiva and sclera are non-icteric and not injected. Cornea within normal limits. Periorbital areas with no swelling, redness, or edema. ENT: Nares patent. No nasal discharge, no septal abnormalities noted. Tympanic membranes are normal and external auditory canals are clear. Oropharynx with no redness, swelling, or masses, exudates, or evidence of obstruction, uvula midline. Mucous membranes moist. Chest/axilla: Normal chest wall appearance and motion. Nontender with no deformity. No lesions are appreciated. Cardiovascular: Regular rate and rhythm with a normal S1 and S2. No gallops, murmurs, or rubs. Normal PMI, no JVD. No pulse deficits. Respiratory: Lungs have equal breath sounds bilaterally, clear to auscultation and percussion. No rales, rhonchi or wheezes noted. No increased work of breathing, no retractions or nasal flaring. Abdomen/GI: Soft, non-tender, with normal bowel sounds. No distension or tympany. No guarding or rebound. No evidence of tenderness throughout. Back: No spinal tenderness. No costovertebral tenderness. Full range of motion. Female : Normal external genitalia. Skin: Warm, dry with normal turgor. Normal color with no rashes, no lesions, and no evidence of cellulitis. MS/ Extremity: Pulses equal, no cyanosis. Neurovascular intact. Full, normal range of motion. Neuro: Awake and alert, GCS 15, oriented to person, place, time, and situation. Cranial nerves II-XII grossly intact. Motor strength 5/5 in all extremities. Sensory grossly intact. Cerebellar exam normal. Normal gait. Psych: Awake, alert, with orientation to person, place and time. Behavior, mood, and affect are within normal limits. 17:13 ENT: Posterior pharynx: no acute changes, Airway: normal, no evidence of obstruction. Vital Signs: 15:42 BP 121 / 61; Pulse 76; Resp 16; Temp 97.5; Pulse Ox 98% on R/A; Weight 67.13 kg; Height la1 5 ft. 4 in. (162.56 cm); 18:29 BP 154 / 59; Pulse 70; Resp 16; Pulse Ox 100% ; jl7 15:42 Body Mass Index 25.40 (67.13 kg, 162.56 cm) la1 MDM: 16:10 Patient medically screened. [facility] 17:16 Data reviewed: vital signs, nurses notes, lab test result(s), radiologic studies, CT richard scan. 12/30 17:13 Order name: CBC with Diff [facility] 12/30 17:13 Order name: Comprehensive Metabolic Panel; Complete Time: 18:11 [facility] 12/30 17:13 Order name: Sed Rate [facility] 12/30 17:13 Order name: CT Head C Spine; Complete Time: 18:26 [facility] Administered Medications: 17:44 Drug: NS 0.9% 500 ml Route: IV; Rate: bolus; Site: right antecubital; 7 18:15 Follow up: Response: No adverse reaction; IV Status: Completed infusion; IV Intake: jl7 500ml 18:00 CANCELLED (Duplicate Order): KeFLEX 500 mg PO once [facility] 18:40 Drug: Valium 5 mg Route: PO; jl7 18:40 Follow up: Response: Medication administered at discharge. 7 18:40 Drug: Decadron - Dexamethasone 10 mg Route: IVP; Site: right antecubital; 7 18:40 Follow up: Response: Medication administered at discharge. [facility] Disposition: 12/30/18 18:31 Discharged to Home. Impression: Strain of muscle, fascia and tendon at neck level, Torticollis, Atrial fibrillation and flutter. - Condition is Stable. - Discharge Instructions: Muscle Strain, Acute Torticollis, Adult, Cervical Sprain, [id number]. - Prescriptions for Tylenol- Codeine #3 300-30 mg Oral Tablet - take 2 tablet by ORAL route every 6 hours As needed; 30 tablet. Medrol (Oswaldo) 4 mg Oral Tablets, Dose Pack - take 1 tablet by ORAL route as directed - follow package instructions; 1 packet. Cyclobenzaprine 5 mg Oral Tablet - take 1 tablet by ORAL route 3 times per day As needed; 15 tablet. - Medication Reconciliation Form, Thank You Letter, Antibiotic Education, Prescription Opioid Use form. - Follow up: Private Physician; When: 2 - 3 days; Reason: Recheck today's complaints, Continuance of care, Re-evaluation by your physician. Follow up: Beto Rodriguez MD; When: 2 - 3 days; Reason: Recheck today's complaints, Continuance of care, Re-evaluation by your physician. - Problem is new. - Symptoms have improved. Signatures: Dispatcher [employer] EDGurmeet Zuniga MD MD cha Attema, Lee RN RN la1 Laureen Cano RN RN jl7 Corrections: (The following items were deleted from the chart) 18:00 17:59 KeFLEX 500 mg PO once ordered. [facility] 18:34 18:31 12/30/2018 18:31 Discharged to Home. Impression: Strain of muscle, fascia and richard tendon at neck level; Torticollis. Condition is Stable. Forms are Medication Reconciliation Form, Thank You Letter, Antibiotic Education, Prescription Opioid Use. Follow up: Private Physician; When: 2 - 3 days; Reason: Recheck today's complaints, Continuance of care, Re-evaluation by your physician. Follow up: Beto Rodriguez; When: 2 - 3 days; Reason: Recheck today's complaints, Continuance of care, Re-evaluation by your physician. Problem is new. Symptoms have improved. [facility] 19:12 18:34 12/30/2018 18:31 Discharged to Home. Impression: Strain of muscle, fascia and jl7 tendon at neck level; Torticollis; Atrial fibrillation and flutter. Condition is Stable. Discharge Instructions: Muscle Strain, Acute Torticollis, Adult, Cervical Sprain, [id number]. Prescriptions for Tylenol-Codeine #3 300-30 mg Oral Tablet - take 2 tablet by ORAL route every 6 hours As needed; 30 tablet, Medrol (Oswaldo) 4 mg Oral Tablets, Dose Pack - take 1 tablet by ORAL route as directed - follow package instructions; 1 packet, Cyclobenzaprine 5 mg Oral Tablet - take 1 tablet by ORAL route 3 times per day As needed; 15 tablet. and Forms are Medication Reconciliation Form, Thank You Letter, Antibiotic Education, Prescription Opioid Use. Follow up: Private Physician; When: 2 - 3 days; Reason: Recheck today's complaints, Continuance of care, Re-evaluation by your physician. Follow up: Beto Rodriguez; When: 2 - 3 days; Reason: Recheck today's complaints, Continuance of care, Re-evaluation by your physician. Problem is new. Symptoms have improved. richard
[2018-12-30] MEDS ORDERED: dexAMETHasone 10 MG/ML VIAL ONE (18:38)
[2018-12-30] MEDS ORDERED: DIAZEPAM 5 MG TABLET ONE (18:39)
== END 2018-12-30 19:12 | disposition home or self-care (01) ==
LOC: ER 15:26
DX: M43.6 Torticollis (principal); I48.91 Unspecified atrial fibrillation; I10 Essential (primary) hypertension; E78.5 Hyperlipidemia, unspecified; S16.1XXA Strain of muscle, fascia and tendon at neck level, initial encounter; X58.XXXA Exposure to other specified factors, initial encounter; Y93.9 Activity, unspecified; Y92.9 Unspecified place or not applicable
CPT/HCPCS: 96361; 85025; 36415; 85652; 80053; 70450; 72125; 96374; 99284; J1100

== ENCOUNTER 2019-06-29 21:42 | Emergency (ER) | payer OTHER ==
[2019-06-29 23:42] LABS: Absolute Lymphocytes (CBC) 2.2 K/uL (0.7-4.9); Basophils % 0.6 % (0-1.3); Hematocrit 37.8 % (36.0-45.0); Lymphocytes % 25.8 % (15.3-44.8); MPV 9.8 fL (7.6-11.3); RBC Red Blood Cell Count 4.01 M/uL (3.86-4.86)
[2019-06-29 23:56] LABS: ALT/SGPT 24 U/L (12-78); AST/SGOT 17 U/L (15-37); Albumin 3.5 g/dL (3.4-5.0); Alkaline Phosphatase 59 U/L (45-117); BUN Blood Urea Nitrogen 25 mg/dL (7-18); Bicarbonate 27 mmol/L (21-32); Bilirubin Total 0.4 mg/dL (0.2-1.0); Glucose Level 125 mg/dL (74-106); Potassium 3.6 mmol/L (3.5-5.1); Protein, Total 6.5 g/dL (6.4-8.2); Sodium Level 142 mmol/L (136-145); Troponin (Emerg Dept Use Only) < 0.02 ng/mL (0.0-0.045)
[2019-06-30 00:07] LABS: Urine Glucose NEGATIVE (NEG); Urine Specific Gravity 1.025 (1.005-1.030)
[2019-06-30 00:08] LABS: Urine Blood TRACE (NEG); Urine Protein NEGATIVE (NEG)
[2019-06-30] MEDS ORDERED: NA CHLORIDE 0.9% 1,000 ML ONE (00:12)
[2019-06-30] MEDS ORDERED: DIGOXIN 0.25 MG/ML AMP ONE (00:12)
--- NOTE | 2019-06-30 01:37 | EDPHYS ---
Physician Documentation [facility] Name: Marcy Callahan Age: 83 yrs Sex: Female : 1935 Arrival Date: 06/29/2019 Time: 21:44 Bed 8 Private MD: ED Physician Av Peck HPI: 06/30 00:15 This 83 yrs old Female presents to ER via Ambulatory with complaints of High ps1 Blood Pressure. 00:15 Patient has a history of pAF controlled with sotalol and xarelto. Patient of Dr. amaris Chand. Supposed to get an elective cardioversion July 11. States that she is essentially asymptomatic but family became concerned with her blood pressure being low and then high. She states that she will have intermittent fatigue but no lightheaded, palpitations, or exertional dyspnea.. Historical: - Allergies: 06/29 22:13 No Known Allergies; lp1 - Home Meds: 22:13 sotalol 80 mg Oral tab 1 tab 2 times per day [Active]; Xarelto 20 mg Oral tab 1 tab lp1 once daily [Active]; losartan-hydrochlorothiazide 100-12.5 mg oral tab 1 tab once daily [Active]; amlodipine 5 mg tab 1 tab once daily [Active]; Pravachol 80 mg Oral tab 1 tab once daily [Active]; - PMHx: 22:13 Atrial Fib; Hyperlipidemia; Hypertension; lp1 - PSHx: 22:13 None; lp1 - Immunization history:: Adult Immunizations up to date. - Coronavirus screen:: The patient has NOT traveled to [place] in the past 14 days. The patient has NOT had contact with known/suspected case of Coronavirus?. - Social history:: Smoking status: Patient denies any tobacco usage or history of. - Ebola Screening: : No symptoms or risks identified at this time. ROS: 06/30 00:15 Constitutional: Negative for fever, chills, and weight loss, Eyes: Negative for injury, ps1 pain, redness, and discharge, Neck: Negative for injury, pain, and swelling, Cardiovascular: Negative for chest pain, palpitations, and edema, Respiratory: Negative for shortness of breath, cough, wheezing, and pleuritic chest pain, Abdomen/GI: Negative for abdominal pain, nausea, vomiting, diarrhea, and constipation, MS/Extremity: Negative for injury and deformity, Skin: Negative for injury, rash, and discoloration, Neuro: Negative for headache, weakness, numbness, tingling, and seizure. Exam: 00:15 Constitutional: This is a well developed, well nourished patient who is awake, alert, ps1 and in no acute distress. Head/Face: Normocephalic, atraumatic. Chest/axilla: Normal chest wall appearance and motion. Nontender with no deformity. No lesions are appreciated. Respiratory: Lungs have equal breath sounds bilaterally, clear to auscultation and percussion. No rales, rhonchi or wheezes noted. No increased work of breathing, no retractions or nasal flaring. Abdomen/GI: Soft, non-tender, with normal bowel sounds. No distension or tympany. No guarding or rebound. No evidence of tenderness throughout. Skin: Warm, dry with normal turgor. Normal color with no rashes, no lesions, and no evidence of cellulitis. MS/ Extremity: Pulses equal, no cyanosis. Neurovascular intact. Full, normal range of motion. Neuro: Awake and alert, GCS 15, oriented to person, place, time, and situation. Cranial nerves II-XII grossly intact. Sensory grossly intact. 00:15 Cardiovascular: Rate: tachycardic, Rhythm: irregularly irregular, Pulses: no pulse deficits are appreciated, Edema: is not appreciated, JVD: is not appreciated. Vital Signs: 06/29 21:50 BP 97 / 71; Pulse 81; Resp 18; Pulse Ox 100% on R/A; Weight 67.13 kg (R); Height 5 ft. lp1 4 in. (162.56 cm); Pain 0/10; 21:55 Temp 97.7(O); jd3 22:00 BP 116 / 76; Pulse 109; Resp 20; Pulse Ox 100% on R/A; lp1 22:59 BP 106 / 55; Pulse 99; Resp 18 S; Pulse Ox 99% on R/A; jd3 06/30 00:18 BP 101 / 66; Pulse 97; Resp 15 S; Pulse Ox 99% on R/A; Pain 0/10; jd3 00:48 BP 121 / 81; Pulse 88; Resp 17 S; Pulse Ox 100% on R/A; jd3 01:51 BP 126 / 67; Pulse 96; Resp 17 S; Pulse Ox 100% on R/A; Pain 0/10; jd3 06/29 21:50 Body Mass Index 25.40 (67.13 kg, 162.56 cm) lp1 MDM: 06/29 22:59 Patient medically screened. ps1 06/30 01:41 Differential diagnosis: Malignant HTN, atrial fibrillation with RVR, pAF, metabolic ps1 abnormalities, and others. Data reviewed: vital signs, nurses notes, lab test result(s), EKG, and as a result, I will discharge patient. Counseling: I had a detailed discussion with the patient and/or guardian regarding: the historical points, exam findings, and any diagnostic results supporting the discharge/admit diagnosis, lab results, the need for outpatient follow up, to return to the emergency department if symptoms worsen or persist or if there are any questions or concerns that arise at home. ED course: 83 y/o F presenting with concerns for hypertension. Hx of pAF. Scheduled electrical cardioversion Jul 21 per Mannie. Found to be mildly tachycardic. BP WNL. Gave fluids and digoxin. Remained asymptomatic. Labs cw dehydration with prerenal BUN/Banking Analyst. Spoke with Dorita and eliana for discharge and hydrate before cardioversion. Return precautions given. Stable for discharge. . 06/29 23:01 Order name: CBC with Diff; Complete Time: 23:48 ps1 06/29 23:01 Order name: CMP; Complete Time: 00:07 ps1 06/29 23:01 Order name: Magnesium; Complete Time: 00:07 ps1 06/29 23:01 Order name: Troponin (emerg Dept Use Only); Complete Time: 00:07 ps1 06/29 23:44 Order name: Urine Dipstick--Ancillary (enter results); Complete Time: 00:08 ar5 06/29 23:01 Order name: Urine Dipstick-Ancillary (obtain specimen); Complete Time: 23:38 ps1 EC/20 22:03 Rate is 115 beats/min. Rhythm is irregularly irregular. QRS [place] is Normal. FL interval ps1 is normal. QRS interval is normal. QT interval is normal. No Q waves. T waves are Normal. No ST changes noted. Clinical impression: Atrial Fibrillation. Administered Medications: 06/30 00:17 Drug: Digoxin 0.125 mg Route: IVP; Site: right antecubital; jd3 00:47 Follow up: Response: No adverse reaction jd3 00:18 Drug: NS 0.9% 1000 ml Route: IV; Rate: 1 bolus; Site: right antecubital; jd3 01:51 Follow up: Response: No adverse reaction; IV Status: Completed infusion; IV Intake: jd3 1000ml Disposition: 06/30/19 01:36 Discharged to Home. Impression: Paroxysmal Atrial Fibrillation. - Condition is Stable. - Discharge Instructions: Atrial Fibrillation. - Medication Reconciliation Form, Thank You Letter, Antibiotic Education, Prescription Opioid Use form. - Follow up: Terry Chand MD; When: As previously scheduled; Reason: Continuance of care. Follow up: Emergency Department; When: As needed; Reason: Trouble breathing, Worsening of condition. - Problem is chronic. - Symptoms are unchanged. Signatures: Dispatcher [employer] EDEmily Herbert RN RN lp1 Camilo Flores RN RN jd3 Av Peck MD MD ps1 Corrections: (The following items were deleted from the chart) 01:52 01:36 06/30/2019 01:36 Discharged to Home. Impression: Paroxysmal Atrial Fibrillation. jd3 Condition is Stable. Forms are Medication Reconciliation Form, Thank You Letter, Antibiotic Education, Prescription Opioid Use. Follow up: Terry Chand; When: As previously scheduled; Reason: Continuance of care. Follow up: Emergency Department; When: As needed; Reason: Trouble breathing, Worsening of condition. Problem is chronic. Symptoms are unchanged. ps1
--- NOTE | 2019-06-30 01:37 | ER ---
Nurse's Notes [facility] Name: Marcy Callahan Age: 83 yrs Sex: Female : 1935 Arrival Date: 06/29/2019 Time: 21:44 Bed 8 Private MD: Diagnosis: Paroxysmal Atrial Fibrillation Presentation: 06/29 22:05 Presenting complaint: Child states: Daughter states checking patient's BP tonight and lp1 it was 122/104; Patient denies any chest pain, shortness of breath; States legs feeling a bit shaky. Transition of care: patient was not received from another setting of care. Onset of symptoms was June 29, 2019. Risk Assessment: Do you want to hurt yourself or someone else? Patient reports no desire to harm self or others. Initial Sepsis Screen: Does the patient meet any 2 criteria? No. Patient's initial sepsis screen is negative. Does the patient have a suspected source of infection? No. Patient's initial sepsis screen is negative. Care prior to arrival: None. 22:05 Method Of Arrival: Ambulatory lp1 22:05 Acuity: DORI 3 lp1 Historical: - Allergies: 22:13 No Known Allergies; lp1 - Home Meds: 22:13 sotalol 80 mg Oral tab 1 tab 2 times per day [Active]; Xarelto 20 mg Oral tab 1 tab lp1 once daily [Active]; losartan-hydrochlorothiazide 100-12.5 mg oral tab 1 tab once daily [Active]; amlodipine 5 mg tab 1 tab once daily [Active]; Pravachol 80 mg Oral tab 1 tab once daily [Active]; - PMHx: 22:13 Atrial Fib; Hyperlipidemia; Hypertension; lp1 - PSHx: 22:13 None; lp1 - Immunization history:: Adult Immunizations up to date. - Coronavirus screen:: The patient has NOT traveled to [place] in the past 14 days. The patient has NOT had contact with known/suspected case of Coronavirus?. - Social history:: Smoking status: Patient denies any tobacco usage or history of. - Ebola Screening: : No symptoms or risks identified at this time. Screenin:15 Abuse screen: Denies threats or abuse. Nutritional screening: No deficits noted. jd3 Tuberculosis screening: No symptoms or risk factors identified. Fall Risk None identified. Assessment: 22:07 General: Appears in no apparent distress. comfortable, well groomed, Behavior is calm, jd3 cooperative, appropriate for age. Pain: Denies pain. Neuro: Level of Consciousness is awake, alert, obeys commands, Oriented to person, place, time, situation. Cardiovascular: Denies chest pain, Heart tones present Capillary refill < 3 seconds in bilateral fingers Patient's skin is warm and dry. Pulses pulses strong and irregular Rhythm is atrial fibrillation. Respiratory: Airway is patent Trachea midline Respiratory effort is even, unlabored, Respiratory pattern is regular, symmetrical, Breath sounds are clear bilaterally. Denies shortness of breath. GI: No signs and/or symptoms were reported involving the gastrointestinal system. : No signs and/or symptoms were reported regarding the genitourinary system. EENT: No signs and/or symptoms were reported regarding the EENT system. Derm: Skin is intact, Skin is dry, Skin is normal, Skin temperature is warm. Musculoskeletal: Circulation, motion, and sensation intact. Range of motion: intact in all extremities, Reports weakness in right leg and left leg. 22:59 Reassessment: Patient appears in no apparent distress at this time. No changes from jd3 previously documented assessment. Patient and/or family updated on plan of care and expected duration. Pain level reassessed. Patient is alert, oriented x 3, equal unlabored respirations, skin warm/dry/pink. 06/30 00:19 Reassessment: Patient appears in no apparent distress at this time. No changes from jd3 previously documented assessment. Patient and/or family updated on plan of care and expected duration. Pain level reassessed. Patient is alert, oriented x 3, equal unlabored respirations, skin warm/dry/pink. Patient denies pain at this time. 01:49 Reassessment: Patient appears in no apparent distress at this time. Patient and/or jd3 family updated on plan of care and expected duration. Pain level reassessed. Patient is alert, oriented x 3, equal unlabored respirations, skin warm/dry/pink. pt reported understanding of discharge instructions. even and steady gait upon discharge. Patient denies pain at this time. Vital Signs: 06/29 21:50 BP 97 / 71; Pulse 81; Resp 18; Pulse Ox 100% on R/A; Weight 67.13 kg (R); Height 5 ft. lp1 4 in. (162.56 cm); Pain 0/10; 21:55 Temp 97.7(O); jd3 22:00 BP 116 / 76; Pulse 109; Resp 20; Pulse Ox 100% on R/A; lp1 22:59 BP 106 / 55; Pulse 99; Resp 18 S; Pulse Ox 99% on R/A; jd3 06/30 00:18 BP 101 / 66; Pulse 97; Resp 15 S; Pulse Ox 99% on R/A; Pain 0/10; jd3 00:48 BP 121 / 81; Pulse 88; Resp 17 S; Pulse Ox 100% on R/A; jd3 01:51 BP 126 / 67; Pulse 96; Resp 17 S; Pulse Ox 100% on R/A; Pain 0/10; jd3 06/29 21:50 Body Mass Index 25.40 (67.13 kg, 162.56 cm) lp1 ED Course: 06/29 21:44 Patient arrived in ED. cl3 21:51 Camilo Flores, SAIDA is Primary Nurse. jd3 22:05 EKG done, by ED staff, reviewed by Av Peck MD. jd3 22:08 Av Peck MD is Attending Physician. ps1 22:09 Triage completed. lp1 22:09 Arm band placed on. lp1 22:13 Patient has correct armband on for positive identification. Placed in gown. Cardiac lp1 monitor on. Pulse ox on. NIBP on. 23:18 Inserted saline lock: 20 gauge in right antecubital area, using aseptic technique. jd3 Blood collected. Placed by Monica HERRERA. 06/30 01:35 Terry Chand MD is Referral Physician. ps1 01:50 No provider procedures requiring assistance completed. IV discontinued, intact, jd3 bleeding controlled, No redness/swelling at site. Pressure dressing applied. Administered Medications: 00:17 Drug: Digoxin 0.125 mg Route: IVP; Site: right antecubital; jd3 00:47 Follow up: Response: No adverse reaction jd3 00:18 Drug: NS 0.9% 1000 ml Route: IV; Rate: 1 bolus; Site: right antecubital; jd3 01:51 Follow up: Response: No adverse reaction; IV Status: Completed infusion; IV Intake: jd3 1000ml Intake: 01:51 IV: 1000ml; Total: 1000ml. jd3 Outcome: 01:36 Discharge ordered by . ps1 01:50 Discharged to home ambulatory, with family. jd3 01:50 Condition: stable 01:50 Discharge instructions given to patient, family, Instructed on discharge instructions, follow up and referral plans. Demonstrated understanding of instructions, follow-up care. 01:52 Patient left the ED. jd3 Signatures: Emily Bautista, RN RN lp1 Camilo Flores RN RN Av De La Cruz MD MD ps1 Nehemiah, Andi cl3 Corrections: (The following items were deleted from the chart) 06/29 23:02 22:02 EKG done, by ED staff, reviewed by Av villar jerika
[2019-06-30 02:00] VITALS: TEMP 97.7
[2019-06-30 02:05] VITALS: O2SAT 100
[2019-06-30 02:07] VITALS: BP 126/67
--- NOTE | 2019-06-30 11:31 | EKG ---
Test Date: 2019-06-29 Test Time: 22:03:53 Asl Interpreter: BIGG MEASUREMENT RESULTS: Intervals: Rate: 115 [place]: QRSD: 68 QT: 334 QTc: 462 [place]: P: [place]: QRS: 6 T: 56 INTERPRETIVE STATEMENTS: Atrial fibrillation with rapid ventricular response Low voltage QRS Cannot rule out Anterior infarct, age undetermined Abnormal ECG Compared to ECG 09/06/2018 20:01:16 Myocardial infarct finding now present Electronically Signed On 06-30-19 11:31:16 IMPROVEMENT ANALYST by Jonathan Kevin
== END 2019-06-30 01:52 | disposition home or self-care (01) ==
LOC: ER 21:42
DX: I48.0 Paroxysmal atrial fibrillation (principal); I10 Essential (primary) hypertension; E78.5 Hyperlipidemia, unspecified
CPT/HCPCS: 96361; 93005; 85025; 36415; 83735; 81003; 84484; 80053; 96374; 99284; J1160; J7030

== ENCOUNTER 2019-07-12 06:25 | Day surgery (SDC) | payer OTHER ==
[2019-07-10 12:52] LABS: Protime INR 1.38
[2019-07-12] MEDS ORDERED: NA CHLORIDE 0.9% 500 ML ONE (07:14)
[2019-07-12 07:40] VITALS: BP 144/65; O2SAT 99
--- NOTE | 2019-07-12 08:27 | EKG ---
Test Date: 2019-07-10 Test Time: 12:14:55 Medical Director/Head Team Physician: MONTEZ MEASUREMENT RESULTS: Intervals: Rate: 62 [place]: 160 QRSD: 78 QT: 436 QTc: 442 [place]: P: -6 [place]: 160 QRS: 13 T: 57 INTERPRETIVE STATEMENTS: Electronic atrial pacemaker Low voltage QRS RSR' or QR pattern in V1 suggests right ventricular conduction delay Borderline ECG Compared to ECG 06/29/2019 22:03:53 RSR' in V1 or V2 now present Atrial fibrillation no longer present Myocardial infarct finding no longer present Electronically Signed On 07-12-19 08:26:41 PARKS AND RECREATION WORKER by Terry Chand
--- NOTE | 2019-07-13 11:41 | EKG ---
Test Date: 2019-07-12 Test Time: 07:22:26 Corporate Associate Attorney: TIGIST MEASUREMENT RESULTS: Intervals: Rate: 60 [place]: 160 QRSD: 84 QT: 452 QTc: 452 [place]: P: -22 [place]: 160 QRS: 5 T: 41 INTERPRETIVE STATEMENTS: Electronic atrial pacemaker Low voltage QRS RSR' or QR pattern in V1 suggests right ventricular conduction delay Borderline ECG Compared to ECG 07/10/2019 12:14:55 No significant changes Electronically Signed On 07-13-19 11:37:08 CAROUSEL OPERATOR by Jonathan Kevin
--- NOTE | 2019-07-13 18:08 | PN ---
Ms. Callahan was brought to the Day Surgery area to undergo electrical cardioversion for persistent atr ial fibrillation. When we did her EKG, it was apparent her atrial fibrillation had resolved, so she did not have an IV started, did not have any medications, and was discharged home to continue on her present medications and visit with an tdp displays analyst in [place] to see if she needs another abla tion. Again, there was no procedure done. She is discharged from Day Surgery without any procedure being done. ADRIEN/MAURICIO Voice ID: [id number] Report ID: [id number]
== END 2019-07-12 07:40 | disposition home or self-care (01) ==
LOC: CCL 06:25
PROVIDERS: ATTEND Internal Medicine
DX: I48.91 Unspecified atrial fibrillation (principal); Z53.9 Procedure and treatment not carried out, unspecified reason; Z79.2 Long term (current) use of antibiotics
CPT/HCPCS: 93005 ×2; 36415; 85610; 85730; J7040